=== PATIENT | female | born 1970 | race African-American/Black ===

== ENCOUNTER → 2016-08-27 | Outpatient (CLI) | payer OTHER ==
[~2016-08-27] MED LIST: ASPIRIN81 M2 PO; INDERAL LA120 MG PO; MOTRIN20 MG/ML PO; TYLENOL #3 PO
[2016-08-27 11:32] LABS: CHOLESTEROL 153 mg/dL (0-200); GLUCOSE RANDOM 95 mg/dL (70-110); HDL CHOLESTEROL 49 mg/dL (35-95); LDL CHOLESTEROL 91 mg/dL (-130); LDL/HDL RATIO 2 RATIO (0-4); TRIGLYCERIDES 64 mg/dL (10-160)
== END | disposition home or self-care (01) ==
LOC: CLAB 10:02
PROVIDERS: Surgery
DX: E66.01 Morbid (severe) obesity due to excess calories (principal)
CPT/HCPCS: 36415; 80061; 82947

== ENCOUNTER 2016-09-28 00:26 | Emergency (ER) | payer OTHER ==
--- NOTE | ~2016-09-28 | CT71 ---
[facility] RADIOLOGY TEXT RESULTS PATIENT: GULSHAN BAILEY LOCATION: [facility] : 66 UNIT #: [id number] AGE: [address]: Dimitrios Mack MD SEX: F ORDER DR: [id number] [facility]. [place], [place] [address] [id number] E MR#: [id number] Acc #: [id number] NAME: GULSHAN BAILEY : 1970 SEX: F STUDY DATE/TIME: 09/28/2016 2:27 UNIT: [facility] ROOM: STUDY DESCRIPTION: CT Head Wo Contrast Attending Physician: Dimitrios Mack M.D. Ordering Physician: Dimitrios Mack M.D. Primary Care Physician: Dottie Edwards M.D. MEDICAL IMAGING REPORT This report is preliminary unless electronic signature is present EXAM CT head without contrast INDICATIONS Posterior headache since yesterday. TECHNIQUE Unenhanced CT head. This CT exam was performed with one or more of the following radiation dose reduction techniques: automatic exposure control, adjustment of mA and/or kV according to patient size, and iterative reconstruction. FINDINGS No acute hemorrhage, abnormal mass effect, extraaxial collection or hydrocephalus. No calvarial fracture. The paranasal sinuses and mastoid air cells are clear. IMPRESSION No acute intracranial findings. Dictated by... Francisco Javier Keith M.D. THIS IS AN ELECTRONICALLY VERIFIED REPORT Francisco Javier Keith M.D. at 09/29/2016 9:57 PM EED/pcl TD: 09/28/2016 11:11 JOB #: [id number] [facility] RADIOLOGY TEXT RESULTS PATIENT: GULSHAN BAILEY LOCATION: [facility] : 66 UNIT #: [id number] AGE: [address]: Dimitrios Mack MD SEX: F ORDER DR: MEDICAL IMAGING REPORT Page 1 of 1 COPY
== END 2016-09-28 03:07 | disposition home or self-care (01) ==
LOC: CED 00:26
DX: I10 Essential (primary) hypertension (principal); R51 Headache; Z88.5 Allergy status to narcotic agent; Z79.82 Long term (current) use of aspirin
CPT/HCPCS: 70450; 84703; 96372; 99284; J1885